=== PATIENT | male | born 1950 | race Caucasian/White ===

== ENCOUNTER 2019-06-25 15:45 | Inpatient (IN) | payer MEDICARE ==
[~2019-06-25] VITALS: Ht 180.3 cm; Wt 159.9 kg
[2019-06-25 15:47] VITALS: BP 170/67
[2019-06-25 16:08] LABS: BASO % 0.8 % (0.0-1.0); EOS # 0.6 10*3/uL (0.0-0.4); EOS % 12.1 % (1.0-4.0); HEMATOCRIT 27.2 % (42.0-52.0); HEMOGLOBIN 7.4 g/dl (14.0-18.0); LYMPH # 0.4 10*3/uL (1.3-4.4); LYMPH % 8.9 % (27.0-41.0); MEAN CELL VOLUME 75.6 fl (80.0-94.0); MEAN CORPUSCULAR HGB 20.6 pg (27.0-31.0); MEAN CORPUSCULAR HGB CONC 27.2 g/dl (33.0-37.0); MEAN PLATELET VOLUME 10.9 fl (9.6-12.3); MONO # 0.5 10*3/uL (0.1-1.0); MONO % 9.7 % (3.0-9.0); NEUT # 3.4 10*3/uL (2.3-7.9); NEUT % 67.7 % (47.0-73.0); PLATELET COUNT AUTOMATED 197 10*3/uL (130-400); RED CELL DISTRI WIDTH 19.9 % (0-14.5)
[2019-06-25 16:20] LABS: ACT PARTIAL THROMBO TIME 23.6 SECONDS (20.0-32.1)
[2019-06-25 16:22] LABS: ALBUMIN 2.5 gm/dl (3.1-4.5); ALKALINE PHOSPHATASE 97 U/L (45-117); BUN 8 mg/dl (7-24); CHLORIDE 104 mmol/L (98-107); CREATININE 0.74 mg/dL (0.70-1.30); POTASSIUM 3.9 mmol/L (3.5-5.1); SGOT/AST 26 IU/L (3-35); SGPT/ALT 14 U/L (12-78); SODIUM 138 mmol/L (136-145); TOTAL PROTEIN 6.1 gm/dL (6.4-8.2)
[2019-06-25 16:25] LABS: TROPONIN I < 0.015 ng/ml (<0.045)
[2019-06-25 16:47] VITALS: BP 177/66
[2019-06-25 17:59] VITALS: BP 170/71
--- NOTE | 2019-06-25 19:48 | NUR ---
PER KATELIN COCHRAN SHE DID NOT KNOW THAT SHE WAS GETTING AN ADMISSION SO WHE NEEDS APPROXIMATELY 15 MORE MINUTES.
[2019-06-25 20:00] VITALS: BP 160/70
[2019-06-25 20:10] VITALS: BP 160/80
--- NOTE | 2019-06-25 20:10 | NUR ---
A 68, admitted to 5E, under the services of WILLARD Kelly DO with a diagnosis of ANEMIA. Chief complaint is SHORTNESS OF BREATH. Patient arrived via stretcher from ER. Monitor applied. Initial assessment completed. Vital signs taken and recorded. WILLARD KELLY DO notified of admission to the unit. Orders received. See assessment for past medical history, medications and allergies. Patient and/or family oriented to unit. [facility] visitation policy reviewed. Clothing/patient valuable form completed. DIMAS WEBBER
[2019-06-25] MEDS ORDERED: VICTOZA 3-PAK6 MG/ML SC (21:26)
[2019-06-25] MEDS ORDERED: PIOGLITAZONE HC30 MG PO (21:27)
[2019-06-25] MEDS ORDERED: GLIMEPIRIDE4 M1 PO (21:28)
[2019-06-25] MEDS ORDERED: VYTORIN 10-801 EACH PO (21:29)
[2019-06-25] MEDS ORDERED: LEVOXYL112 MCG PO (21:30)
[2019-06-25] MEDS ORDERED: NEURONTIN300 MG PO (21:31)
[2019-06-26] VITALS (8 sets, daily range): BP systolic 148–180; BP diastolic 52–70
--- NOTE | 2019-06-26 05:33 | NUR ---
WINSTON SAHA [id number] Please refer to the physician's history and physical for past medical history, comorbid conditions, and allergies. Diagnosis: ANEMIA German Score: 20,LOW OR NO RISK WOUND DESCRIPTIONS: Wound Number: 1 Location of the wound: left lower extremity Thickness: Partial Size: 1.1cm x 0.2cm x 0.1cm Tunneling: none Undermining: none Sinus Tract: none Presence of Exudate: Serous Amount: Light Color: Red Odor: None Periwound Skin Appearance: Normal Wound edges: approximated Pain (associated with wound): none at time of assessment How does patient state this happened? pt states he is uncertain how this happened but states it been there a couple weeks Surface the patient is resting on: Position Pro SKIN PREVENTION RECOMMENDATION: 1. Pressure redistribution support surface as appropriate 2. Elevate heels 3. Remove boots/TEDS every shift and reapply 4. Head of bed 30 degrees as tolerated 5. Assess nutrition and hydration 6. Manage moisture 7. Avoid the use of containment devices while in bed 8. Use absorptive products on surfaces limit layers of linens on bed 9. Turn and reposition every 1-2 hours in bed and every 1 hour in chair as tolerated 10. Weight shifts every 15 minutes while up in chair 11. Offloading with pillows or device to keep heels elevated off bed 12. Monitor skin at least every shift 13. Inspect under medical devices twice a day WOUND TREATMENT RECOMMENDATIONS: Partial thickness guidelines: Cleanse left lower extremity with nss and apply sureprep around the wound therahoney to wound bed and cover with optifoam gentle daily and prn for soiling. D/C full thickness guidelines.
[2019-06-26 06:42] LABS: EOS # 0.4 10*3/uL (0.0-0.4); EOS % 10.4 % (1.0-4.0); HEMATOCRIT 25.5 % (42.0-52.0); LYMPH # 0.3 10*3/uL (1.3-4.4); LYMPH % 7.4 % (27.0-41.0); MEAN CELL VOLUME 74.1 fl (80.0-94.0); MEAN CORPUSCULAR HGB 20.3 pg (27.0-31.0); MEAN CORPUSCULAR HGB CONC 27.5 g/dl (33.0-37.0); MEAN PLATELET VOLUME 10.1 fl (9.6-12.3); MONO # 0.4 10*3/uL (0.1-1.0); MONO % 10.4 % (3.0-9.0); NEUT # 2.9 10*3/uL (2.3-7.9); NEUT % 70.3 % (47.0-73.0); PLATELET COUNT AUTOMATED 168 10*3/uL (130-400); RED BLOOD COUNT 3.44 10*6/uL (4.50-5.90); RED CELL DISTRI WIDTH 19.9 % (0-14.5); WHITE BLOOD COUNT 4.1 10*3/uL (4.8-10.8)
--- NOTE | 2019-06-26 07:04 | NUR ---
CALL PLACED TO DR. CAMERON ADVISED TO MAKE PATIENT NPO AFTER MIDNIGHT AND SOFT DIET UNTIL THEN, WILL EGD ON 06/27/19
[2019-06-26 07:20] LABS: ALBUMIN 2.4 gm/dl (3.1-4.5); ALKALINE PHOSPHATASE 93 U/L (45-117); BUN 7 mg/dl (7-24); CHLORIDE 104 mmol/L (98-107); CHOLESTEROL 98 mg/dL (<200); CREATININE 0.64 mg/dL (0.70-1.30); FREE T4 1.27 ng/dl (0.76-1.46); HDL CHOLESTEROL 42 mg/dl (40-60); LDL CHOLESTEROL 41 mg/dL (9-159); POTASSIUM 3.6 mmol/L (3.5-5.1); SGOT/AST 21 IU/L (3-35); SGPT/ALT 15 U/L (12-78); SODIUM 139 mmol/L (136-145); TOTAL PROTEIN 5.8 gm/dL (6.4-8.2); TRIGLYCERIDES 76 mg/dl (<150); VLDL CHOLESTEROL 15 mg/dL (6-40)
[2019-06-26 07:41] LABS: VITAMIN D, 25-HYDROXY 14.2 ng/mL (30-100)
[2019-06-26 08:04] LABS: IRON 19 ug/dL (65-175); TOTAL IRON BINDING CAPACITY 521 ug/dl (250-450)
--- NOTE | 2019-06-26 08:33 | NUR ---
Dr. Mg notified of wound care recommendations.
--- NOTE | 2019-06-26 12:45 | NUR ---
Morning Show Producer in to talk to patient. Patient states lives at HOME with . There are FEW steps in the home. Physician: TANIKA [facility]acy: [facility] Home health services: NONE Patient's level of ADLs: INDEPENDENT Patient has working utilities: YES DME: NONE Follow-up physician's appointment after d/c: WILL BE MADE BY HOSPITALIST NURSE DIRECTOR ON DISCHARGE Does patient want to access PORTAL?: NO Discharge plan PT LIVES AT HOME WITH HIS AND IS INDEPENDENT IN HIS CARE. DENIES HE WILL HAVE ANY NEEDS ON DISCHARGE. WILL CONTINUE TO FOLLOW.. KD GONZALES
[2019-06-26 16:50] LABS: HEMATOCRIT 29.2 % (42.0-52.0); HEMOGLOBIN 8.1 g/dl (14.0-18.0)
--- NOTE | 2019-06-26 19:45 | NUR ---
ARRIVED ON SHIFT, INTRODUCED TO PATIENT, JOSÉ MIGUELISIDE REPORT RECEIVED, WHITE BOARD UPDATED, NO NEEDS VOICED AT THIS TIME.
--- NOTE | 2019-06-26 20:53 | NUR ---
24 HR chart check completed.
[2019-06-27] VITALS (8 sets, daily range): BP systolic 118–184; BP diastolic 55–62
--- NOTE | 2019-06-27 02:14 | NUR ---
Patient sleeping. Respirations relaxed and easy. Siderails up 2. [place] on. DIMAS WEBBER
--- NOTE | 2019-06-27 05:40 | NUR ---
Recommend follow up for wound care in outpatient setting patient refused at this time.
[2019-06-27 06:11] LABS: BASO % 0.6 % (0.0-1.0); EOS # 0.4 10*3/uL (0.0-0.4); EOS % 7.3 % (1.0-4.0); HEMATOCRIT 29.2 % (42.0-52.0); LYMPH # 0.4 10*3/uL (1.3-4.4); LYMPH % 8.3 % (27.0-41.0); MEAN CORPUSCULAR HGB 20.8 pg (27.0-31.0); MEAN CORPUSCULAR HGB CONC 27.4 g/dl (33.0-37.0); MEAN PLATELET VOLUME 10.1 fl (9.6-12.3); MONO # 0.5 10*3/uL (0.1-1.0); MONO % 10.2 % (3.0-9.0); NEUT # 3.5 10*3/uL (2.3-7.9); NEUT % 71.7 % (47.0-73.0); NUCLEATED RED BLOOD CELL 0.4 % (0.0-0.0); PLATELET COUNT AUTOMATED 184 10*3/uL (130-400); RED BLOOD COUNT 3.84 10*6/uL (4.50-5.90); RED CELL DISTRI WIDTH 20.1 % (0-14.5); WHITE BLOOD COUNT 4.8 10*3/uL (4.8-10.8)
[2019-06-27 06:23] LABS: BUN 7 mg/dl (7-24); CHLORIDE 103 mmol/L (98-107); CREATININE 0.55 mg/dL (0.70-1.30); POTASSIUM 3.4 mmol/L (3.5-5.1); SODIUM 139 mmol/L (136-145)
--- NOTE | 2019-06-27 12:03 | NUR ---
PT STATES HE WILL RETURN HOME ON DISCHARGE WITH NO NEW NEEDS.
--- NOTE | 2019-06-27 14:12 | NUR ---
Nutritional Support Services Note: Encouraged pt to drink a supplement, he refused at this time. Encouraged 100% po intake of all meals and increased kcal and protein to promote healing. Will follow as needed. Keri Toledo Rdn Ld
[2019-06-27] MEDS ORDERED: FEROSUL325 MG PO (16:08)
[2019-06-27] MEDS ORDERED: SIMVASTATIN80 MG PO (16:08)
[2019-06-27] MEDS ORDERED: VITAMIN D32000 UNI1 PO (16:08)
[2019-06-27] MEDS ORDERED: ACYCLOVIR800 MG PO (16:08)
--- NOTE | 2019-06-27 19:36 | NUR ---
24 HR chart check completed.
--- NOTE | 2019-06-27 20:10 | NUR ---
PATIENT ARRIVED TO FLOOR FROM POST OP. A/O X3. CALL LIGHT WITHIN REACH. BED LOCKED AND IN LOWEST POSITION. NO S/S OF DISTRESS. SIDE RAILS UP X2. PATIENT VERBALIZED HAVING AN APPETITE AND REQUESTED SOMETHING TO EAT.
[2019-06-28] VITALS: BP 166/59
[2019-06-28 08:00] VITALS: BP 160/54
[2019-06-28] MEDS ORDERED: PROTONIX40 MG PO (11:06)
--- NOTE | 2019-06-28 12:22 | NUR ---
PT CONTINUES TO DENY NEEDS AT HOME. WILL RETURN HOME WHEN MEDICALLY STABLE. WILL CONTINUE TO FOLLOW.
--- NOTE | 2019-06-28 13:06 | NUR ---
Discharge instructions reviewed with patient/family. Patient receptive and verbalizes understanding. Follow-up care arranged. Written instructions given to patient/family. HEPLOCK DISCONTINUED. WOUND PHOTO TAKEN, PATIENT AMBULATORY OFF FLOOR. DEXTER KIRKPATRICK
== END 2019-06-28 13:06 | disposition home or self-care (01) | DRG 377 ==
LOC: ED 15:45 → EDHOLD 19:05 → 5E 19:05
PROVIDERS: Emergency Medicine; Internal Medicine; Student in an Organized Health Care Education/Training Program; ADMIT Internal Medicine
PROC: 30233N1 Transfusion of Nonautologous Red Blood Cells into Peripheral Vein, Percutaneous Approach (ICD-10-PCS; principal; 2019-06-26)
PROC: 0DB68ZX Excision of Stomach, Via Natural or Artificial Opening Endoscopic, Diagnostic (ICD-10-PCS; 2019-06-27)
DX: K29.71 Gastritis, unspecified, with bleeding (principal); E43 Unspecified severe protein-calorie malnutrition; Z68.42 Body mass index [BMI] 45.0-49.9, adult; B02.9 Zoster without complications; D50.9 Iron deficiency anemia, unspecified; E83.41 Hypermagnesemia; E11.65 Type 2 diabetes mellitus with hyperglycemia; K44.9 Diaphragmatic hernia without obstruction or gangrene; K21.9 Gastro-esophageal reflux disease without esophagitis; E78.5 Hyperlipidemia, unspecified; I10 Essential (primary) hypertension; E03.9 Hypothyroidism, unspecified; E66.01 Morbid (severe) obesity due to excess calories; E11.40 Type 2 diabetes mellitus with diabetic neuropathy, unspecified; Z96.653 Presence of artificial knee joint, bilateral; I50.82 Biventricular heart failure; Z80.8 Family history of malignant neoplasm of other organs or systems; Z79.899 Other long term (current) drug therapy

== ENCOUNTER → 2019-07-02 | Outpatient (CLI) | payer MEDICARE ==
[~2019-07-02] MED LIST: ACYCLOVIR800 MG PO; FEROSUL325 MG PO; GLIMEPIRIDE4 M1 PO; LEVOXYL112 MCG PO; NEURONTIN300 MG PO; PIOGLITAZONE HC30 MG PO; PROTONIX40 MG PO; SIMVASTATIN80 MG PO; VICTOZA 3-PAK6 MG/ML SC; VITAMIN D32000 UNI1 PO; VYTORIN 10-801 EACH PO
[2019-07-02 14:01] LABS: BASO % 0.7 % (0.0-1.0); EOS # 0.4 10*3/uL (0.0-0.4); EOS % 8.7 % (1.0-4.0); HEMATOCRIT 30.6 % (42.0-52.0); HEMOGLOBIN 8.3 g/dl (14.0-18.0); LYMPH # 0.6 10*3/uL (1.3-4.4); LYMPH % 14.5 % (27.0-41.0); MEAN CELL VOLUME 77.9 fl (80.0-94.0); MEAN CORPUSCULAR HGB 21.1 pg (27.0-31.0); MEAN CORPUSCULAR HGB CONC 27.1 g/dl (33.0-37.0); MEAN PLATELET VOLUME 10.3 fl (9.6-12.3); MONO # 0.3 10*3/uL (0.1-1.0); MONO % 6.5 % (3.0-9.0); NEUT # 2.8 10*3/uL (2.3-7.9); NEUT % 69.1 % (47.0-73.0); PLATELET COUNT AUTOMATED 170 10*3/uL (130-400); RED BLOOD COUNT 3.93 10*6/uL (4.50-5.90); RED CELL DISTRI WIDTH 21.8 % (0-14.5)
== END | disposition home or self-care (01) ==
LOC: LAB 13:19
PROVIDERS: Internal Medicine
DX: D64.9 Anemia, unspecified (principal)

== ENCOUNTER → 2021-05-05 | Outpatient (CLI) | payer MEDICARE ==
[2021-05-05 14:35] LABS: BASO # 0.1 10*3/uL (0.0-0.1); EOS # 0.1 10*3/uL (0.0-0.4); EOS % 2.8 % (1.0-4.0); HEMATOCRIT 42.2 % (42.0-52.0); LYMPH # 0.7 10*3/uL (1.3-4.4); LYMPH % 13.9 % (27.0-41.0); MEAN CELL VOLUME 97.7 fl (80.0-94.0); MEAN CORPUSCULAR HGB 31.9 pg (27.0-31.0); MEAN CORPUSCULAR HGB CONC 32.7 g/dl (33.0-37.0); MEAN PLATELET VOLUME 11.3 fl (9.6-12.3); MONO # 0.4 10*3/uL (0.1-1.0); MONO % 7.5 % (3.0-9.0); NEUT # 3.7 10*3/uL (2.3-7.9); NEUT % 74.2 % (47.0-73.0); PLATELET COUNT AUTOMATED 166 10*3/uL (130-400); RED BLOOD COUNT 4.32 10*6/uL (4.50-5.90); RED CELL DISTRI WIDTH 13.2 % (0-14.5)
[2021-05-05 15:01] LABS: ALBUMIN 2.7 gm/dl (3.1-4.5); ALKALINE PHOSPHATASE 105 U/L (45-117); BUN 13 mg/dl (7-24); CHLORIDE 108 mmol/L (98-107); CHOLESTEROL 178 mg/dL (<200); CREATININE 0.83 mg/dL (0.70-1.30); LDL CHOLESTEROL 52 mg/dL (9-159); POTASSIUM 4.2 mmol/L (3.5-5.1); SGOT/AST 43 IU/L (3-35); SGPT/ALT 34 U/L (12-78); SODIUM 137 mmol/L (136-145); TOTAL PROTEIN 6.8 gm/dL (6.4-8.2); TRIGLYCERIDES 349 mg/dl (<150)
[2021-05-05 17:08] LABS: BILIRUBIN Negative (Negative); BLOOD Negative (Negative); CLARITY Cloudy (Clear); COLOR Dark Yellow (Yellow); GLUCOSE Negative (Negative); KETONE Trace (Negative); LEUKO ESTERASE Negative (Negative); NITRITE Negative (Negative); PH 5.5 (4.5-8.0); SPECIFIC GRAVITY 1.025 (1.001-1.030)
[2021-05-05 17:37] LABS: BACTERIA 1+; MUCOUS 2+
== END | disposition home or self-care (01) ==
LOC: LAB 14:12
PROVIDERS: ATTEND Internal Medicine
DX: Z12.5 Encounter for screening for malignant neoplasm of prostate (principal); E11.9 Type 2 diabetes mellitus without complications; E03.9 Hypothyroidism, unspecified; E78.5 Hyperlipidemia, unspecified; N39.0 Urinary tract infection, site not specified; Z79.899 Other long term (current) drug therapy

== ENCOUNTER 2021-11-11 13:44 | Emergency (ER) | payer MEDICARE ==
[~2021-11-11] VITALS: Ht 180.3 cm; Wt 121.1 kg
[2021-11-11 15:38] LABS: BASO % 0.4 % (0.0-1.0); EOS # 0.1 10*3/uL (0.0-0.4); EOS % 1.2 % (1.0-4.0); HEMATOCRIT 43.4 % (42.0-52.0); LYMPH # 0.5 10*3/uL (1.3-4.4); LYMPH % 9.8 % (27.0-41.0); MEAN CELL VOLUME 100.7 fl (80.0-94.0); MEAN CORPUSCULAR HGB 33.9 pg (27.0-31.0); MEAN CORPUSCULAR HGB CONC 33.6 g/dl (33.0-37.0); MEAN PLATELET VOLUME 11.1 fl (9.6-12.3); MONO # 0.5 10*3/uL (0.1-1.0); MONO % 10.4 % (3.0-9.0); NEUT % 77.6 % (47.0-73.0); PLATELET COUNT AUTOMATED 143 10*3/uL (130-400); RED BLOOD COUNT 4.31 10*6/uL (4.50-5.90); RED CELL DISTRI WIDTH 12.3 % (0-14.5); WHITE BLOOD COUNT 5.1 10*3/uL (4.8-10.8)
[2021-11-11 15:54] LABS: ALBUMIN 2.6 gm/dl (3.1-4.5); ALKALINE PHOSPHATASE 102 U/L (45-117); BUN 6 mg/dl (7-24); CHLORIDE 104 mmol/L (98-107); CREATININE 0.69 mg/dL (0.70-1.30); POTASSIUM 3.5 mmol/L (3.5-5.1); SGOT/AST 21 IU/L (3-35); SGPT/ALT 22 U/L (12-78); SODIUM 139 mmol/L (136-145); URIC ACID 4.1 mg/dL (3.5-7.2)
[2021-11-11] MEDS ORDERED: PREDNISONE50 MG PO (17:38)
== END 2021-11-11 18:07 | disposition home or self-care (01) ==
LOC: ED 13:44
PROVIDERS: Emergency Medicine
DX: M65.88 Other synovitis and tenosynovitis, other site (principal); Z79.899 Other long term (current) drug therapy

== ENCOUNTER 2025-03-15 15:48 | Emergency (ER) | payer OTHER ==
[~2025-03-15] VITALS: Ht 180.3 cm; Wt 131.5 kg
[~2025-03-15 15:48] MED LIST changes: +CALCIUM500 M1 PO; +DEPRESSION PILL; +FERREX 150150 MG PO; +FUROSEMIDE40 MG PO; +K-TAB20 MEQ PO; +LORAZEPAM1 MG PO; +LOSARTAN POTASS50 M1 PO; +METHOCARBAMOL500 M1 PO; +MIRAPEX0.25 M1 PO; +Magnesium Oxid400 MG PO; +NAPROXEN250 MG PO; +NATURE'S BLEND F1 MG PO; +NATURE'S BLEND100 M2 PO; +OSTERA TABLET1 EACH PO; +PAROXETINE10 MG PO; +PREDNISONE50 MG PO; +REMERON SOLTAB15 MG PO; +REQUIP2 MG PO; +SIMVASTATIN20 MG PO; +TEMAZEPAM15 M1 PO; +VITAMIN D31250 MCG PO
[2025-03-15] MEDS ORDERED: CEPHALEXIN500 M1 PO (16:46)
[2025-03-15] MEDS ORDERED: Bacitracin Zinc 14 GM TUBE T ONE (17:00)
== END 2025-03-15 17:23 | disposition home or self-care (01) ==
LOC: ED 15:48
DX: S81.811A Laceration without foreign body, right lower leg, initial encounter (principal); Z79.899 Other long term (current) drug therapy; Z79.84 Long term (current) use of oral hypoglycemic drugs; Z98.890 Other specified postprocedural states; Z96.653 Presence of artificial knee joint, bilateral; W22.09XA Striking against other stationary object, initial encounter; Y93.89 Activity, other specified; Y92.810 Car as the place of occurrence of the external cause; Y99.8 Other external cause status

== ENCOUNTER 2025-03-25 10:40 | Emergency (ER) | payer OTHER ==
[~2025-03-25] VITALS: Ht 180.3 cm; Wt 127.0 kg
[~2025-03-25 10:40] MED LIST changes: +CEPHALEXIN500 M1 PO
[2025-03-25 11:00] VITALS: BP 130/57
[2025-03-25 13:21] VITALS: BP 124/54
[2025-03-25] MEDS ORDERED: SODIUM CHLORIDE 0.9% 1,000 ML IV ONE (13:45)
[2025-03-25] MEDS ORDERED: diazePAM 10 MG/2 ML SYR IV ONE (13:45)
[2025-03-25] MEDS ORDERED: Meclizine Hydrochloride 25 MG TAB PO ONE (13:45)
[2025-03-25 14:14] LABS: BASO % 0.6 % (0.0-1.0); EOS # 0.1 10*3/uL (0.0-0.4); EOS % 2.1 % (1.0-4.0); HEMATOCRIT 43.6 % (42.0-52.0); MEAN CELL VOLUME 102.6 fl (80.0-94.0); MEAN CORPUSCULAR HGB 32.5 pg (27.0-31.0); MEAN CORPUSCULAR HGB CONC 31.7 g/dl (33.0-37.0); MEAN PLATELET VOLUME 11.2 fl (9.6-12.3); MONO # 0.4 10*3/uL (0.1-1.0); MONO % 7.6 % (3.0-9.0); NEUT # 3.5 10*3/uL (2.3-7.9); NEUT % 73.6 % (47.0-73.0); PLATELET COUNT AUTOMATED 147 10*3/uL (130-400); RED BLOOD COUNT 4.25 10*6/uL (4.50-5.90); WHITE BLOOD COUNT 4.7 10*3/uL (4.8-10.8)
[2025-03-25 14:22] LABS: BUN 16 mg/dl (9-23); CHLORIDE 100 mmol/L (98-107)
== END 2025-03-25 16:51 | disposition home or self-care (01) ==
LOC: ED 10:40 → EDHOLD 14:05 → ED 14:05
PROVIDERS: Internal Medicine
DX: R42 Dizziness and giddiness (principal); S81.811D Laceration without foreign body, right lower leg, subsequent encounter; E86.0 Dehydration; E11.9 Type 2 diabetes mellitus without complications; E03.9 Hypothyroidism, unspecified; I50.9 Heart failure, unspecified; F41.9 Anxiety disorder, unspecified; Z79.899 Other long term (current) drug therapy; Z98.890 Other specified postprocedural states; X58.XXXD Exposure to other specified factors, subsequent encounter